=== PATIENT | male | born 1990 | race Caucasian/White ===

== ENCOUNTER 2022-11-07 16:22 | Outpatient (CLI) | payer OTHER, SELFPAY ==
[2022-11-07 16:59] LABS: Basophils Absolute Auto 0.1 K/mm3 (0.0-0.1); Basophils Percent Auto 0.7 % (0.2-1.2); Eosinophils Absolute Auto 0.3 K/mm3 (0-0.3); Eosinophils Percent Auto 2.5 % (0-4.4); Hematocrit 43.9 % (42.0-52.0); Hemoglobin 14.5 g/dL (14.0-18.0); Immature Granulocyte Absolute 0.04 K/mm3 (0.00-0.031); Immature Granulocyte Percent A 0.4 % (0-0.5); Lymphocytes Absolute Auto 2.25 K/mm3 (0.9-3.2); Lymphocytes Percent Auto 20.9 % (18.3-44.2); Mean Corpuscular Hemoglobin 28.9 pg (26-34); Mean Corpuscular Volume 87.6 fl (80-100); Mean Platelet Volume 11.6 fl (7.4-10.4); Monocytes Absolute Auto 0.8 K/mm3 (0.1-0.6); Monocytes Percent Auto 7.5 % (2.6-8.5); Neutrophils Absolute Auto 7.3 K/mm3 (1.3-6.7); Platelet Count Result 253 k/mm3 (150-375); Red Blood Count 5.01 M/mm3 (4.6-6.20); Red Cell Distribution Width 13.1 % (11.5-14.5); White Blood Count 10.8 K/mm3 (4.5-10.0)
[2022-11-07 17:02] LABS: Appearance Urine Clear (Clear); Bilirubin Urine Negative (Negative); Blood Urine Negative (Negative); Color Urine Yellow (Yellow); Glucose Urine UA Negative (Negative); Ketones Urine Negative (Negative); Leukocyte Esterase Ur Negative LEU/UL (Negative); Nitrate Urine Negative (Negative); Protein Urine Negative (Negative); Specific Grav Ur 1.025 (1.001-1.035); Urobilinogen Urine 0.2 mg/dL (<2.0)
[2022-11-07 17:06] LABS: Add Urine Microscopic? NO
[2022-11-07 17:07] LABS: Anion Gap 7 mmol/L (8-16); Blood Urea Nitrogen 20 mg/dL (9-20); Calcium 9.3 mg/dL (8.4-10.2); Carbon Dioxide 29 mmol/L (22-30); Chloride 100 mmol/L (98-107); Estimated Glomerular Filt Rate > 60; Glucose 112 mg/dL (65-110); Potassium 3.3 mmol/L (3.4-5.0); Sodium 136 mmol/L (137-145)
== END 2022-11-07 16:23 | disposition home or self-care (01) ==
LOC: ANHLAB 16:23
PROVIDERS: Visit Provider Neurological Surgery
DX: Z01.818 Encounter for other preprocedural examination (principal)
CPT/HCPCS: 36415; 80048; 81003; 85025

== ENCOUNTER 2022-11-09 14:54 | Inpatient (IN) | payer OTHER, SELFPAY ==
[2022-10-26 10:50] VITALS: BMI 52.4
--- NOTE | 2022-10-26 10:55 | PC.NURSE ---
Report to the Outpatient Waiting Room, entrance under the green pavilion located off [facility], at time 0930 on date 11/08/22. Planned Procedure Time: 1130. Time changes happen often and if your time is changed the preop area will call you the afternoon before. - You and your visitor will be asked to self-screen and do not enter if you have any COVID symptoms. - Only one visitor is requested with a max of two and NO children visitors are allowed at this time. - The patient visitor may be requested to leave or wait in car when not with patient due to distancing restrictions. - A mask is REQUIRED within the hospital. Patients may have clear liquids (water, carbonated beverages, clear teas, apple juice) until 3 hours prior to surgery with a maximum of 20 ounces. - No food from midnight until time of surgery Take the following medications with a SIP of water the morning of surgery: BUPROPION Medications to discontinue per physician: VITAMINS/SUPPLEMENTS Date to take last dose: 11/04/22 Please no make-up, nail turkish, hairspray, perfume, deodorant, or body powder the day of surgery. No jewelry (including any body piercings) or valuables the day of surgery, leave them at home. Please take a shower or bath the night before, or the morning of, surgery with an antibacterial soap. Wear comfortable, loose fitting clothing. - Jewelry must be removed prior to entering the operating room. Rings and piercings that are not removed may be cut off. - The hospital will not accept responsibility for valuables. - Please leave all valuables, including medications, at home the day of surgery. If you are going home after surgery, a licensed driver examiner must drive you home. - NO public transportation without another adult if you receive anesthesia. - We recommend that an adult stay with you for 24 hours following discharge. - We also recommend that you do not drive, make important decision, drink alcoholic beverages, or take any drugs that were not prescribed by your health care provider for at least 24 hours after your discharge time. Follow any additional instructions given to you from your surgeon. If you or anyone in your household have experienced Covid symptoms in the past week, please notify your surgeon or the nurse liaison at the phone number below for possible testing. Telephone instructions given to PT - SHELBIE MOORE and asked if any additional questions and then verbalized understanding. Patient advised to call surgeon office or pre surgery nurse liaison [phone] if any additional questions.
--- NOTE | 2022-11-07 09:52 | PCCCNOTE ---
Addendum entered by Digna Multani RN 11/07/22 10:32: Return phone received from Hamida states that submitted for Inpatient auth and patient is authorized as IP [id number] Addendum entered by Digna Multani RN 11/07/22 09:56: Correction: unsure if it is auth'd for outpatient or inpatient. Original Note: Per precert notes, preauth is needed for surgery. Called to MD's office sw [facility], she states that she has authorization but unsure if it is auth'd for [id number]. Hamida to fax to care coordination for review.
[2022-11-08] VITALS (16 sets, daily range): BP systolic 98–160; BP diastolic 76–109; PULSE 81–96; RESP 10–22; TEMP 36.1–36.7; O2SAT 96–100; BMI 51.5
[2022-11-08] MEDS: LACTATED RINGERS 1,000 ML 30 ML IV CONT ×2 (11:14→17:23)
[2022-11-08 11:32] LABS: INR 1.1; Partial Thromboplastin Time 29.1 SECONDS (22.3-36.8)
--- NOTE | 2022-11-08 12:53 | WPDANESEPPF ---
Anes - Initial Pre Proc Eval Procedure: Operation Date: 11/08/22 11:30 Proposed Procedures p T10-L2 Lumbar Laminectomy and Discectomy, Right L5-S1 Microscopic Discectomy - Naren Antonio MD Date/Time: 11/08/22 12:53 Surgeon: Naren Antonio MD Pre Op Diagnosis: T10-L2 stenosis, Right L5-S1 herniated nucleus pul Patient Data Age: 31 Gender: M Height: 1.77 m Weight: 160.5 kg Last Vital Signs Temp 36.7 C 11/08/22 10:47 Pulse 92 11/08/22 10:47 Resp 20 11/08/22 10:47 BP 144/76 H 11/08/22 10:47 Pulse Ox 96 11/08/22 10:47 O2 Del Method Room Air 11/08/22 10:47 Allergies Allergy/AdvReac Type Severity Reaction Status Date / Time No Known Allergies Allergy Verified 11/08/22 11:24 Home Medications Medication Instructions Recorded Confirmed Type bupropion HCl 300 mg 24 hr tablet, 300 mg PO DAILY 10/26/22 11/08/22 History extended release zinc gluconate 100 mg tablet 100 mg PO DAILY 10/26/22 11/08/22 History Laboratory Tests 11/08/22 11/08/22 11/08/22 11:06 11:06 11:06 PT Cancelled 14.0 Seconds Seconds (11.1-14.7) INR Cancelled 1.1 APTT 29.1 SECONDS SECONDS (22.3-36.8) Blood Type A Positive Antibody Screen Negative Patient hx anesthesia problems: none Family hx anesthesia problems: none Results Review: All pre-operative results and documents have been reviewed as part of the pre-operative evaluation. FOR[facility]LY [facility] Past Medical History Medical History (Updated 11/08/22 @ 12:53 by Nimesh Dubois MD) Anxiety Back pain Morbid obesity Surgical History Surgical History (Updated 11/08/22 @ 12:54 by Nimesh Dubois MD) History of excision of pilonidal cyst Family History Family History Other Diabetes mellitus Heart disease Hypertension Social History Social History Smoking status: Never smoker Alcohol intake: current Alcohol use details: 1-2/YEAR Substance use: never Substance use type: does not use Spiritual care concerns: No Anes - Eval Final PreProcedure Day of Procedure 11/08/22 12:53 Patient weight: morbidly obese Heart: regular rate and rhythm Lungs: clear to auscultation Airway: Mallampati scale class II Neurological: alert and oriented Last oral intake: >/= 8 hours ASA classification: III Emergent: no Anesthetic plan: proceed Anesthesia type and monitoring: general ETT and standard monitoring Results Review: All pre-operative results and documents have been reviewed as part of the pre-operative evaluation. Informed Consent: The patient's anesthetic plan and its attendant risks and benefits were discussed with the patient/family/POA. Questions were solicited and answers provided to the satisfaction of the patient/family/POA.
--- NOTE | 2022-11-08 13:12 | WPDHPUPDATE1 ---
History and Physical Update Update Date/Time: 11/08/22 13:12 History and Physical has been reviewed, including an updated exam of the patient. There are NO changes in the patient's condition. Risks, benefits, and alternatives have been discussed and questions answered. Patient agrees to proceed with procedure.
--- NOTE | 2022-11-08 13:12 | PM.IMHP ---
H&P: HPI History of Present Illness Date/Time: 11/08/22 13:12 Chief Complaint: Back and leg pain, myelopathy Narrative: Mr. Sandoval is a 31-year-old gentleman with spinal cord compression causing myelopathy and back and leg pain presents for T10-L2 laminectomy and microdiskectomy and left-sided L5-S1 microdiskectomy to remove calcified disc herniations and decompress the spinal canal and nerve roots. He has not changed appreciably since we saw him last. He is not having any new bowel or bladder issues. He does have weakness and difficulty walking. Review of Systems Review of Systems: Const All systems reviewed & are unremarkable except as noted in HPI and below Denies chills, Denies fever(s), Reports weakness, Denies weight gain and Denies weight loss Eyes Denies change in vision and Denies loss of vision ENT Denies disequilibrium Card Denies chest pain and Denies dyspnea Resp Denies cough and Denies dyspnea GI Denies abdominal pain, Denies change in bowel habits, Denies tenesmus, Denies change in stool character, Denies fecal incontinence and Denies vomiting Denies hematuria, Denies oliguria, Denies difficulty urinating, Denies dysuria, Denies urinary frequency, Denies urinary hesitancy, Denies urinary incontinence and Denies urinary urgency Musc Reports as per HPI, Reports abnormal gait, Reports back pain, Reports muscle weakness, Reports numbness and Reports radiating pain into limb Skin/ Breast Reports system reviewed and no additional complaints, except as documented Neuro Reports as per HPI, Reports abnormal gait, Denies loss of vision, Reports numbness, Reports radicular pain, Denies disequilibrium and Reports weakness Psych Reports no additional complaints, Denies depression and Denies hopelessness Endo Reports no additional complaints and Denies polyuria Ajay/ Lymph Reports no additional complaints Aller/ Immun Reports no additional complaints PMFSH Past Medical History Medical History (Updated 11/08/22 @ 12:53 by Nimesh Dubois MD) Anxiety Back pain Morbid obesity Surgical History Surgical History (Updated 11/08/22 @ 12:54 by Nimesh Dubois MD) History of excision of pilonidal cyst Family History Family History Other Diabetes mellitus Heart disease Hypertension Social History Social History Smoking status: Never smoker Alcohol intake: current Alcohol use details: 1-2/YEAR Substance use: never Substance use type: does not use Spiritual care concerns: No Meds Home Medications and Allergies Home Medications Medication Instructions Recorded Confirmed Type bupropion HCl 300 mg 24 hr tablet, 300 mg PO DAILY 10/26/22 11/08/22 History extended release zinc gluconate 100 mg tablet 100 mg PO DAILY 10/26/22 11/08/22 History Allergies Allergy/AdvReac Type Severity Reaction Status Date / Time No Known Allergies Allergy Verified 11/08/22 11:24 Vital Signs Vital Signs - 24 hr 11/08/22 10:47 Temperature 98.1 F Pulse Rate 92 Respiratory Rate 20 Blood Pressure 144/76 H Pulse Oximetry 96 Oxygen Delivery Room Air Exam Narrative: Examination of the back reveals no tenderness. Range of motion of the back could not be tested due to habitus and instability. Straight leg is negative bilaterally. Karan?s test is negative bilaterally. General: Yes oriented to person, Yes oriented to place, Yes oriented to time, Yes normal cognition and Yes no meningeal signs Cranial Nerves: Yes CN's II-XII intact bilaterally Speech: normal speech Other: Motor: Strength is 4/5 in all muscle groups of the left lower extremity. Strength is normal in the right lower extremity and in the bilateral upper extremities. No dysmetria. No dyspraxia. No pronator drift. Sensory: Patient has subjective left lower extremity numbness but sensation appears to be intact to light touch thr
[2022-11-08] MEDS: ceFAZolin 3 GM/D5W 100 ML 100 ML IVPB (13:29)
[2022-11-08] MEDS: TRANEXAMIC ACID 1,000 MG/10 ML AMPUL 1000 MG IV PUSH (14:29)
[2022-11-08] MEDS: fentaNYL CITRATE INJ (*CRX) 100 MCG/2 ML VIAL 25 MCG IV PUSH ×8 (17:40→18:12)
[2022-11-08] MEDS: HYDROmorphone HCL INJ (*CRX) 1 MG/ML SYR 0.5 MG IV PUSH ×3 (18:24→18:36)
--- NOTE | 2022-11-08 19:25 | ADMGEN ---
This patient, Omi Sandoval II, was admitted to Virtual Bed 7-3 Surgery-3. Patient/family oriented to hospital policies and general routines including ID bracelet, bed and alarms, visiting hours, pain management, procedures, bathroom and other care routines, personal items, smoking policy, room service/diet, and visiting hours. Information on how to activate the Rapid Response Team has been discussed. Patient/Family are encouraged to report perceived risks to care and to ask questions if they do not understand what they are told or what they should do.
[2022-11-08] MEDS: DOCUSATE SODIUM 100 MG CAPSULE PO (20:42)
[2022-11-08] MEDS: HYDROcodone/acetaminophen (*CRX) 10-325 MG TABLET 1 TAB PO (20:42)
[2022-11-09] VITALS (10 sets, daily range): BP systolic 114–147; BP diastolic 52–69; PULSE 91–100; RESP 12–20; TEMP 36.2–37.1; O2SAT 96–100
--- NOTE | ~2022-11-09 | XR_ITS ---
XR fluoroscopy no charge Pain management procedure TECHNIQUE: Fluoroscopy used during spine procedure performed by [Naren Antonio MD] on 2022. 3 seconds of fluoroscopy. with a single image captured. ] FINDINGS: Correlate with procedure note. Single lateral view of the lumbar spine demonstrates surgic al instrument overlying the spinous process at L3. IMPRESSION: Fluoroscopy used during spine procedure. Please correlate with procedural note. Reviewed, dictated and finalized at location A. AL INSURANCE COORDINATOR IMPRESSION: Fluoroscopy used during spine procedure. Please correlate with proc edural note.
--- NOTE | ~2022-11-09 | US_ITS ---
EXAMINATION: US venous doppler [facility] DATE: 11/10/2022 14:38 INDICATION: Right lower limb pain and weak pulses. TECHNIQUE: Grayscale ultrasound images without and with compression and Doppler ultrasound images of the bilateral lower extremity veins were obtained. COMPARISON: None. FINDINGS: The visualized portions of right common femoral vein, profunda (deep) femoral vein, femoral vein, pop liteal vein, posterior tibial veins, peroneal veins, gastrocnemius vein and greater saphenous vein ou tflow are patent. The visualized portions of left common femoral vein, profunda femoral vein, femoral vein, popliteal v ein, posterior tibial veins, peroneal veins, gastrocnemius vein and greater saphenous vein outflow ar e patent. IMPRESSION: 1. No deep venous thrombosis in either lower limb. Reviewed, dictated and finalized at location A. OON SANDER
[2022-11-09] MEDS: HYDROcodone/acetaminophen (*CRX) 10-325 MG TABLET 1 TAB PO ×3 (00:43→08:58)
--- NOTE | 2022-11-09 08:19 | PCOTNOTE ---
Attempted to see patient for OT evaluation this AM. Patient reporting too much pain to attempt to get up at this time. RN notified. Will try to coordinate therapy with pain medication later this morning.
--- NOTE | 2022-11-09 08:23 | PCPTNOTE ---
Attempted PT evaluation. Pt refused due to pain. Pt complaining of R UE and LE of numbness/tingling - RN aware of pt's situation. Will follow.
[2022-11-09] MEDS: DOCUSATE SODIUM 100 MG CAPSULE PO ×2 (08:26→19:59)
[2022-11-09] MEDS: buPROPion HCL XL (24 HR) 150 MG TABCR 300 MG PO (08:26)
--- NOTE | 2022-11-09 11:03 | WPDANESPN ---
Anes - Prog Note Post-Op Date/Time: 11/09/22 11:03 Cardiovascular status: normal Respiratory status: normal Airway patency: baseline Mental status: baseline Post-Op hydration status: normal Vital Signs: Last Vital Signs Temp 36.2 C L 11/09/22 09:00 Pulse 93 11/09/22 09:00 Resp 18 11/09/22 09:00 BP 129/53 L 11/09/22 09:00 Pulse Ox 98 11/09/22 09:00 O2 Del Method Room Air 11/09/22 08:41 O2 Flow Rate 1 11/09/22 04:00 Pain Score (VAS): 0 I/O: Intake & Output 11/08/22 11/09/22 11/09/22 23:59 07:59 15:59 Intake Total 5868 224 2438 Output Total 1905 Balance 1300 -1075 1240 11/08/22 11/08/22 11/08/22 11:06 11:06 11:06 PT Cancelled 14.0 INR Cancelled 1.1 APTT 29.1 Blood Type A Positive Antibody Screen Negative Post-procedural complaints: none Patient Feedback: Patient satisfied with anesthetic care.
[2022-11-09] MEDS: DEXAMETHASONE 4 MG TABLET PO ×3 (13:21→23:43)
[2022-11-09] MEDS: oxyCODONE/ACETAMINOPHEN (*CRX) 5-325 MG TABLET 1 TABLET PO ×3 (13:30→23:43)
--- NOTE | 2022-11-09 13:59 | WPDNEUROSGPN ---
Progress Note: A&P Assessment and Plan (1) Thoracic disc herniation: Code(s): M51.24 - Other intervertebral disc displacement, thoracic region Status: Acute (2) Lumbar disc herniation: Code(s): M51.26 - Other intervertebral disc displacement, lumbar region Status: Acute Plan Pt reports increased pain to RLE, where as LLE is without pain or lack of strength. Dexamethasone started today, first dose given now. Hydrocodone changed to Oxycodone for pain control. Hemovac drain remains in place Monitor dressing for drainage. Time Spent With Patient Time with patient: less than 15 minutes Subjective Date/time seen: 11/09/22 13:59 Interval history: Post op day 1,s/p T10-L2 Laminectomy with Left L5-S1 Discectomy. Pt reports no Left leg pain but does report pain to right lower extremity. Review of Systems Review of Systems: All systems reviewed & are unremarkable except as noted in HPI and below Exam Narrative: General: AO X 3 Speech: normal speech Other: Back incision with intact with outlined drainage noted Motor: Strength is 4/5 in all muscle groups of the right lower extremity (due to pain). Strength is normal in the left lower extremity and in the bilateral upper extremities. No dysmetria. No dyspraxia. No pronator drift. Sensory: Patient has subjective right lower extremity numbness but sensation appears to be intact to light touch throughout the bilateral lower extremities.? Objective Data Vital Signs Vital Signs: Vital Signs - 24 hr 11/08/22 17:23 11/08/22 17:30 11/08/22 17:45 Temperature 36.1 C L Pulse Rate 86 89 91 Respiratory Rate 10 L 10 L 12 Blood Pressure 142/81 H 142/86 H 134/98 H Pulse Oximetry 98 99 99 Oxygen Delivery Simple Face Mask Simple Face Mask Simple Face Mask Oxygen Flow Rate 8 8 8 11/08/22 18:00 11/08/22 18:06 11/08/22 18:15 Temperature Pulse Rate 96 96 Respiratory Rate 14 18 Blood Pressure 111/92 H 119/91 H Pulse Oximetry 100 98 100 Oxygen Delivery Simple Face Mask Room Air Nasal Cannula Oxygen Flow Rate 8 2 11/08/22 18:30 11/08/22 18:45 11/08/22 19:00 Temperature Pulse Rate 92 87 85 Respiratory Rate 18 16 14 Blood Pressure 129/79 131/97 H 139/79 Pulse Oximetry 99 97 96 Oxygen Delivery Nasal Cannula Nasal Cannula Nasal Cannula Oxygen Flow Rate 2 2 2 11/08/22 19:15 11/08/22 19:30 11/08/22 19:45 Temperature 36.3 C L 36.3 C L Pulse Rate 81 86 95 Respiratory Rate 12 22 H 20 Blood Pressure 155/95 H 152/99 H 160/109 H Pulse Oximetry 97 98 100 Oxygen Delivery Nasal Cannula Oxygen Flow Rate 2 11/08/22 20:00 11/08/22 20:30 11/08/22 20:00 Temperature 36.3 C L 36.3 C L Pulse Rate 90 96 Respiratory Rate 20 20 20 Blood Pressure 148/82 H 98/84 L Pulse Oximetry 96 100 100 Oxygen Delivery Nasal Cannula Oxygen Flow Rate 4 11/08/22 22:00 11/09/22 00:30 11/09/22 00:00 Temperature 36.5 C Pulse Rate 97 Respiratory Rate 18 Blood Pressure 121/62 Pulse Oximetry 98 96 96 Oxygen Delivery Nasal Cannula Nasal Cannula Oxygen Flow Rate 3 2 11/09/22 04:30 11/09/22 04:00 11/09/22 06:21 Temperature 36.4 C Pulse Rate 91 Respiratory Rate 20 Blood Pressure 128/62 Pulse Oximetry 97 98 100 Oxygen Delivery Nasal Cannula Room Air Oxygen Flow Rate 1 11/09/22 08:41 11/09/22 09:00 11/09/22 10:26 Temperature 36.2 C L Pulse Rate 93 Respiratory Rate 18 Blood Pressure 129/53 L Pulse Oximetry 98 Oxygen Delivery Room Air Room Air Oxygen Flow Rate Intake/Output Intake/Output: Intake & Output 11/06/22 11/07/22 11/08/22 11/09/22 23:59 23:59 23:59 23:59 Intake Total 1400 2570 Output Total 2305 Balance 1400 265 Meds/Results Medications: Active Medications Generic Name Dose Route Start Last Admin Trade Name Freq PRN Reason Stop Dose Admin Hydrocodone Bitart/Acetaminophen 1 tab 11/08/22 19:24 Hydrocodone/Acetaminophen (*Crx) 5-325 Mg Tablet PO Q4H PRN Mil
--- NOTE | 2022-11-09 15:58 | PC.NURSE ---
This patient, Omi Sandoval II, was transferred to [facility] on 11/09/22 at 1558. Personal belongings sent with patient. Report given to Anni ANDERSON. Appropriate documentation sent with patient.
--- NOTE | 2022-11-09 17:49 | ADMGEN ---
This patient, Omi Sandoval II, was admitted to 2 Medical Room 257-01. Patient/family oriented to hospital policies and general routines including ID bracelet, bed and alarms, visiting hours, pain management, procedures, bathroom and other care routines, personal items, smoking policy, room service/diet, and visiting hours. Information on how to activate the Rapid Response Team has been discussed. Patient/Family are encouraged to report perceived risks to care and to ask questions if they do not understand what they are told or what they should do.
[2022-11-09] MEDS: CYCLOBENZAPRINE HCL 10 MG TABLET PO ×2 (18:15→23:43)
[2022-11-09] MEDS: MORPHINE SULFATE (*CRX) 2 MG/ML INJ IV PUSH (20:02)
[2022-11-09] MEDS: oxyCODONE HCL (*CRX) 5 MG TAB IR PO (23:44)
[2022-11-10] VITALS: BP 132/58; PULSE 97; RESP 14; TEMP 36.6; O2SAT 96
[2022-11-10 04:00] VITALS: BP 138/83; PULSE 93; RESP 14; TEMP 36.6; O2SAT 97
[2022-11-10] MEDS: DEXAMETHASONE 4 MG TABLET PO ×3 (05:57→17:47)
[2022-11-10] MEDS: CYCLOBENZAPRINE HCL 10 MG TABLET PO ×2 (05:57→17:49)
[2022-11-10] MEDS: oxyCODONE/ACETAMINOPHEN (*CRX) 5-325 MG TABLET 1 TABLET PO ×3 (05:59→17:46)
[2022-11-10] MEDS: oxyCODONE HCL (*CRX) 5 MG TAB IR PO ×3 (05:59→17:46)
[2022-11-10] MEDS: DOCUSATE SODIUM 100 MG CAPSULE PO ×2 (08:42→20:22)
[2022-11-10] MEDS: buPROPion HCL XL (24 HR) 150 MG TABCR 300 MG PO (09:03)
[2022-11-10 10:00] VITALS: BP 147/58; PULSE 84; RESP 18; TEMP 36.7; O2SAT 97
--- NOTE | 2022-11-10 11:22 | WPDNEUROSGPN ---
Progress Note: A&P Assessment and Plan (1) Lumbar disc herniation: Code(s): M51.26 - Other intervertebral disc displacement, lumbar region Status: Acute Assessment and Plan: Mr. Omi Sandoval is a 31 y/o M POD # 2 s/p s/p T10-L2 Laminectomy with Left L5-S1 Discectomy with Dr. Antonio - Continue Decadron 4 q 6 - PT/OT - Encourage UP to chair if possible - Ambulate if possible - Void - Passing gas, no BM. Miralax - D/c HV - b/l LE Duplex to r/o DVT - Will continue steroids to see if pain improves - If pain continues, will most likely get MRI tomorrow AM Subjective Date/time seen: 11/10/22 11:22 Patient continues to have right posterior buttock and calf pain in the right leg. His preop left leg pain is gone. Decadron started yesterday with some relief, but still having a lot of difficulty with getting out of bed. + void. Per and patient, his left foot weakness has resolved. HV: 50 Exam Neuro: Other: Alert and oriented x 3 Motor: - Right DF/EHL 4+/5, otherwise full strength + Calf tenderness to palpation on right Objective Data Vital Signs Vital Signs: Vital Signs - 24 hr 11/09/22 14:41 11/09/22 18:27 11/09/22 18:38 Temperature 36.9 C 36.9 C Pulse Rate 100 100 Respiratory Rate 12 12 Blood Pressure 147/69 H 147/69 H Pulse Oximetry 96 96 Oxygen Delivery Room Air Room Air 11/09/22 18:00 11/09/22 20:00 11/09/22 21:00 Temperature 37.1 C 36.8 C Pulse Rate 95 94 Respiratory Rate 16 14 Blood Pressure 139/57 L 114/52 L Pulse Oximetry 98 96 Oxygen Delivery Room Air 11/10/22 00:00 11/10/22 04:00 11/10/22 10:00 Temperature 36.6 C 36.6 C 36.7 C Pulse Rate 97 93 84 Respiratory Rate 14 14 18 Blood Pressure 132/58 L 138/83 147/58 H Pulse Oximetry 96 97 97 Oxygen Delivery Intake/Output Intake/Output: Intake & Output 11/07/22 11/08/22 11/09/22 11/10/22 23:59 23:59 23:59 23:59 Intake Total 1400 3190 700 Output Total 4361 9390 Balance 1400 735 -888 Meds/Results Medications: Active Medications Generic Name Dose Route Start Last Admin Trade Name Freq PRN Reason Stop Dose Admin Hydrocodone Bitart/Acetaminophen 1 tab 11/08/22 19:24 Hydrocodone/Acetaminophen (*Crx) 5-325 Mg Tablet PO Q4H PRN Mild Pain (1-3) Hydrocodone Bitart/Acetaminophen 1 tab 11/08/22 19:24 11/09/22 08:58 Hydrocodone/Acetaminophen (*Crx) 10-325 Mg Tablet PO 1 tab Q4H PRN Administration Moderate Pain (4-6) Al Hydrox/Mg Hydrox/Simethicone 20 ml 11/08/22 19:24 Mag Hydrox/Al Hydrox/Simeth 30 Ml Udc PO Q4H PRN Indigestion/Heartburn Bisacodyl 10 mg 11/08/22 19:24 Bisacodyl 10 Mg Suppository RECTAL DAILY PRN Constipation Bupropion HCl 300 mg 11/09/22 09:00 11/10/22 09:03 Bupropion Hcl Xl (24 Hr) 150 Mg Tabcr PO 300 mg DAILY ANAMARIA Administration Cyclobenzaprine HCl 10 mg 11/09/22 18:00 11/10/22 05:57 Cyclobenzaprine Hcl 10 Mg Tablet PO 10 mg Q6HR PRN Administration Muscle Spasm Dexamethasone 4 mg 11/09/22 12:35 11/10/22 05:57 Dexamethasone 4 Mg Tablet PO 4 mg Q6HR ANAMARIA Administration Docusate Sodium 100 mg 11/08/22 21:00 11/10/22 08:42 Docusate Sodium 100 Mg Capsule PO 100 mg Q12HR ANAMARIA Administration Cefazolin Sodium 1 gm in 50 mls @ 100 mls/hr 11/08/22 20:00 11/10/22 04:09 Ancef 1 Gm/D5w 50 Ml Pm IVPB Infused Q8H ANAMARIA Infusion Morphine Sulfate 2 mg 11/08/22 19:24 11/09/22 20:02 Morphine Sulfate (*Crx) 2 Mg/Ml Inj IV PUSH 2 mg Q2H PRN Administration Breakthrough Pain Ondansetron HCl 4 mg 11/08/22 19:24 Ondansetron Inj 4 Mg/2 Ml Vial IV PUSH Q8H PRN Nausea And Vomiting Oxycodone HCl 5 mg 11/09/22 13:23 11/10/22 05:59 Oxycodone Hcl (*Crx) 5 Mg Tab Ir PO 5 mg Q4H PRN Administration Pain Rated 7-10 Oxycodone/Acetaminophen 1 tablet 11/09/22 12:35 Oxycodone/Acetaminophen (*Crx) 5-325 Mg Tablet PO
--- NOTE | 2022-11-10 12:50 | PCOTNOTE ---
Due to safety concerns, therapy services are not appropriate until pt has been evaluated for DVT. Will attempt when appropriate.
[2022-11-10 14:00] VITALS: BP 147/64; PULSE 92; RESP 14; TEMP 36.6; O2SAT 97
[2022-11-10] MEDS: MORPHINE SULFATE (*CRX) 2 MG/ML INJ IV PUSH (14:55)
--- NOTE | 2022-11-10 16:16 | PM.IMCN ---
Assessment and Plan Assessment and plan (1) Thoracic disc herniation: Code(s): M51.24 - Other intervertebral disc displacement, thoracic region Status: Acute Assessment and Plan: - continue with analgesics as per Neurosurgery - the patient has PT and OT ordered however the patient has limited his activities due to pain. - The patient is able to move his left leg without difficulty now. However the patient is complaining of the electric shocks down his right leg. This could possibly sciatica. Or inflammation from a nerve. The patient is currently on dexamethasone. -Could possibly consider gabapentin for neuropathy pain. -Continue with cyclobenzaprine venous Dopplers negative for DVT per preliminary report (2) Anxiety: Code(s): F41.9 - Anxiety disorder, unspecified Status: Acute Assessment and Plan: -continue with Wellbutrin HPI Data of Consult Consult date: 11/10/22 Requesting Physician: Naren Antonio MD Primary Care Provider: PHYSICIAN NOT ON STAFF Consult Narrative Narrative: Omi Sandoval II is a 31 year old male Who has had an injury to his back in the past. The patient was found have spinal cord compression causing myelopathy and leg pain. The patient states that he was having difficulty lifting up his left leg. The patient underwent a T10-L2 laminectomy with left L5-S1 diskectomy. On 11/08/[address] Antonio. Please see operative note. The patient had a venous Doppler performed which shows no DVT to the right leg. The patient is complaining of numbness and tingling to his right lower extremity. The patient stated it feels as if he has pins and needles going into his leg. The patient was started on dexamethasone and his hydrocodone was replaced with oxycodone. Patient has been having limited PT and OT due to the discomfort. Patient was admitted to neuro surgery observation and the hospitalist group was asked to consult on 11/10/2022. Review of Systems Review of Systems: See HPI All systems reviewed & are unremarkable except as noted in HPI and below Constitutional: Constitutional: Reports as per HPI and Reports no additional constitutional complaints Eyes: Eyes: Reports as per HPI and Reports no additional eye complaints ENT: Reports system reviewed and no additional complaints, except as documented and Reports Normal hearing present Cardiovascular: Cardiovascular: Reports no additional cardiovascular complaints Respiratory: Respiratory: Reports no additional respiratory complaints and Reports no additional respiratory complaints Gastrointestinal: Gastrointestinal: Reports as per HPI and Reports no additional gastrointestinal complaints Musculoskeletal: Musculoskeletal: Reports no additional musculoskeletal complaints Integumentary/Breasts: Skin/Breast: Reports system reviewed and no additional complaints, except as docu and Reports as per HPI Neurologic: Reports system reviewed and no additional complaints, except as documented, Reports as per HPI and Reports Normal hearing present Psychiatric: Psychiatric: Reports no additional psychiatric complaints and Reports as per HPI Endocrine: Endocrine: Reports no additional endocrine complaints Hematologic/Lymphatic: Hematologic/Lymphatic: Reports no additional hematologic/lymphatic complaints Allergic/Immunologic: Allergic/Immunologic: Reports no additional allergic/immunologic complaints [facility] Past Medical History Medical History (Updated 11/10/22 @ 16:34 by Tasneem Salinas NP) Anxiety Back pain Morbid obesity Surgical History Surgical History History of excision of pilonidal cyst Family History Family History Other Diabetes mellitus Heart disease Hypertension Social History Social History (Updated 11/10/22 @ 16:31 by Tasneem Salinas NP) Social History
[2022-11-10 18:00] VITALS: BP 123/59; PULSE 93; RESP 16; TEMP 36.4; O2SAT 97
[2022-11-10 22:16] VITALS: BP 111/54; PULSE 99; RESP 18; TEMP 36.2; O2SAT 96
[2022-11-11] MEDS: DEXAMETHASONE 4 MG TABLET PO ×4 (00:24→17:18)
[2022-11-11] MEDS: oxyCODONE HCL (*CRX) 5 MG TAB IR PO ×4 (00:38→19:00)
[2022-11-11] MEDS: oxyCODONE/ACETAMINOPHEN (*CRX) 5-325 MG TABLET 1 TABLET PO ×4 (00:39→18:59)
[2022-11-11] MEDS: CYCLOBENZAPRINE HCL 10 MG TABLET PO ×2 (05:18→11:14)
[2022-11-11 05:36] LABS: Basophils Percent Auto 0.1 % (0.2-1.2); Hematocrit 39.9 % (42.0-52.0); Hemoglobin 12.7 g/dL (14.0-18.0); Immature Granulocyte Absolute 0.09 K/mm3 (0.00-0.031); Immature Granulocyte Percent A 0.6 % (0-0.5); Lymphocytes Absolute Auto 1.01 K/mm3 (0.9-3.2); Lymphocytes Percent Auto 7.1 % (18.3-44.2); Mean Corpuscular HGB Conc 31.8 g/dl (32-36); Mean Corpuscular Hemoglobin 28.4 pg (26-34); Mean Corpuscular Volume 89.3 fl (80-100); Mean Platelet Volume 12.2 fl (7.4-10.4); Monocytes Absolute Auto 0.5 K/mm3 (0.1-0.6); Monocytes Percent Auto 3.7 % (2.6-8.5); Neutrophils Absolute Auto 12.6 K/mm3 (1.3-6.7); Neutrophils Percent Auto 88.5 % (45.5-73.1); Platelet Count Result 226 k/mm3 (150-375); Red Blood Count 4.47 M/mm3 (4.6-6.20); White Blood Count 14.2 K/mm3 (4.5-10.0)
[2022-11-11 05:48] LABS: Alanine Aminotransferase 27 U/L (6-50); Albumin Level 4.1 g/dL (3.5-5.1); Alkaline Phosphatase 58 U/L (38-126); Anion Gap 7 mmol/L (8-16); Aspartate Amino Transferase 16 U/L (17-59); Bilirubin,Total 0.3 mg/dL (0.2-1.3); Blood Urea Nitrogen 14 mg/dL (9-20); Calcium 8.3 mg/dL (8.4-10.2); Carbon Dioxide 27 mmol/L (22-30); Chloride 103 mmol/L (98-107); Estimated CRCL calculation 271 ml/min; Estimated Glomerular Filt Rate > 60; Glucose 184 mg/dL (65-110); Magnesium 2.3 mg/dL (1.6-2.3); Potassium 4.2 mmol/L (3.4-5.0); Sodium 137 mmol/L (137-145)
[2022-11-11 06:00] VITALS: BP 106/67; PULSE 68; RESP 18; TEMP 36.2; O2SAT 96
[2022-11-11 06:29] LABS: Thyroid Stimulating Hormone Reflex 0.114 uIU/mL (0.465-4.68)
[2022-11-11 06:57] LABS: Folic Acid 5.2 ng/mL (2.76->20)
[2022-11-11] MEDS: DOCUSATE SODIUM 100 MG CAPSULE PO ×2 (08:47→21:21)
[2022-11-11] MEDS: buPROPion HCL XL (24 HR) 150 MG TABCR 300 MG PO (08:47)
[2022-11-11 09:30] LABS: Total Triiodothyronine (T3) 0.75 NG/ML (0.97-1.69)
[2022-11-11 10:10] VITALS: BP 140/67; PULSE 97; RESP 16; TEMP 35.9; O2SAT 99
--- NOTE | 2022-11-11 10:45 | PM.IMPN ---
Progress Note: A&P Assessment and Plan (1) Thoracic disc herniation: Code(s): M51.24 - Other intervertebral disc displacement, thoracic region Status: Acute Assessment and Plan: POD 3 Post op care per neurosurgery Pain medications per neurosurgery PT/OT consulted Activity limited due to pain in the right leg Consider adding gabapentin Consider MRI if pain continues or worsens DVT per neurosurgery (2) Depression: Code(s): F32.A - Depression, unspecified Status: Acute Assessment and Plan: Mood seems to be stable Continue with Wellbutrin for now (3) Elevated blood pressure reading: Code(s): R03.0 - Elevated blood-pressure reading, without diagnosis of hypertension Status: Acute Assessment and Plan: BP has been elevated 11-147/52-69 Not on any home medications Probably related to pain Continue to trend Add therapy as indicated Time Spent With Patient Time with patient: Greater than 35 minutes Subjective Date/time seen: 11/11/22 1045 Interval history: 11/11/22 1045 Patient is sitting in the chair. He stated that he was feeling better. He stated that the pain is better than it has been over the last few day. I bet it has something to do with weight shifting. Otherwise still no BM. He is doing well getting around. He denies any chest pain, shortness of breath, nausea, vomiting, diarrhea, constipation, weakness, or fatigue. 11/10/22 1616 Omi Sandoval II is a 31 year old male ? Who has had an injury to his back in the past.? The patient was found have spinal cord compression causing myelopathy and leg pain.? The patient states that he was having difficulty lifting up his left leg.? The patient underwent a T10-L2 laminectomy with left L5-S1 diskectomy.? On 11/08/[address] Antonio.? Please see operative note.? The patient had a venous Doppler performed which shows no DVT to the right leg.? The patient is complaining of numbness and tingling to his right lower extremity.? The patient stated it feels as if he has pins and needles going into his leg.? The patient was started on dexamethasone and? his hydrocodone? was? replaced with oxycodone.? Patient has been having ? limited PT and OT due to the discomfort.? Patient was admitted to neuro surgery observation and the hospitalist group was asked to consult on 11/10/2022. Review of Systems Review of Systems: All systems reviewed & are unremarkable except as noted in HPI and below Exam Narrative: General: well-nourished, well-appearing 31-year-old male, sitting up in bed, comfortable, NARD Neuro: awake, alert and oriented x4, speech clear, no focal neuro deficits noted HEENMT: normocephalic, atraumatic, EOMI, sclerae anicteric, moist oral mucosa Respiratory: Clear to auscultation bilaterally without crackles, rhonchi or wheezes, nonlabored breathing Cardio: regular rate, regular rhythm with S1-S2 Abdomen: nondistended, normoactive bowel sounds, soft, nontender to palpation Extremities: no edema, erythema, or tenderness to palpation, DP pulses 2+ bilaterally Skin: no rashes or lesions, warm and dry Psych: appropriate mood and affect, judgment and insight intact Objective Data Vital Signs Vital Signs: Vital Signs - 24 hr 11/10/22 10:00 11/10/22 14:00 11/10/22 18:00 Temperature 98.0 F 97.8 F 97.6 F Pulse Rate 84 92 93 Respiratory Rate 18 14 16 Blood Pressure 147/58 H 147/64 H 123/59 L Pulse Oximetry 97 97 97 Oxygen Delivery 11/10/22 20:15 11/10/22 22:16 11/11/22 06:00 Temperature 97.2 F L 97.1 F L Pulse Rate 99 68 Respiratory Rate 18 18 Blood Pressure 111/54 L 106/67 Pulse Oximetry 96 96 Oxygen Delivery Room Air Intake/Output Intake/Output: Intake & Output 11/08/22 11/09/22 11/10/22 11/11/22 23:59 23:59 23:59 23:59 Intake Total 1400 3190 1680 Output Total 7941 2209 1325 Balance 1400 597 -639 -1055 Meds/Result
[2022-11-11 15:12] VITALS: BP 136/61; PULSE 93; RESP 18; TEMP 36.3; O2SAT 97
--- NOTE | 2022-11-11 19:07 | W.PM.PROC2 ---
Procedure Note - Detailed Date of Procedure 11/20/22 Pre-op Diagnosis T10-L2 stenosis, Right L5-S1 herniated nucleus pul Post-op Diagnosis Same Procedure Performed T10 and L2 laminectomy was he was we will see Surgeon Naren Antonio MD Wooden Frame Builder Erica Topete General Indications Omi is a 31-year-old gentleman with this myelopathy related to calcified disc herniations at T10 and L2 present were in compression posterior approach. Description of Procedure The patient was brought to the operative room supine position, was sedated, intubated and placed under general anesthesia and fashioned these into prone position on Ayaz frame. The area of operation on his back was examined, marked our incision, prepped and draped in routine sterile fashion incision was marked over the T10-L2 spinous processes midline. This area was injected with 0.5% lidocaine with 200,000 epinephrine. Intravenous antibiotics given prior to incision. Incision was made with a 10 blade scalpel down to the lumbodorsal fascia. A subperiosteal dissection of the muscle and soft tissue away from the spinous process and lamina at T10 and L2 was performed with a subperioteal elevator and bovie cautery bilaterally. A verifying x-rays obtained to verify the level of operation. Self retaining retractors were placed. The spinous processes were removed with a Arlyn rongeur. a Midas Jose drill with an acorn bit was used to remove lamina in the midline and to the soft contents of the canal were encountered. In the midline Kerrison punches and curved curettes were used to define plane the dura and remove bone and ligament until the dura was exposed. Midas Jose drill with a match stick bit was used to thin the facet and performing medial facetectomy bilaterally to each level. Careful dissection was carried out between the bone and ligament and the dura. 2-0 and 3-0 Kerrison punches were used to remove bone and ligament in the lateral recess bilaterally. This was a tedious and difficult process and had to be done very carefully given the severity of the stenosis especially on the right side. On the right side at every level additional medial facetectomy was performed using a Midas Jose drill, Kerrison punches and curved curette to try to find a channel down to the ventral epidural space. This was accomplished. Calcified disc herniations were known to be present at each of these levels. However, these were found to be too calcified and hard to allow removal safely. Therefore, it was not performed. Additionally, it was felt unnecessary to decompress the L5-S1 level as a similarly calcified disc herniation was apparent on CT scan. The wound was then copiously irrigated with bacitracin irrigation and all bleeding stopped with bipolar and Bovie cautery and Gelfoam thrombin powder. A medium Hemovac drain was left in the subfascial position and about the inferior and right of the incision. The wound was then closed in layered fashion with 2-0 Vicryl interrupted sutures in the lumbodorsal fascia and Omer's layer. 3-0 Vicryl buried interrupted sutures were placed in the dermis and the skin was closed with mer. It was dressed with a Telfa and Tegaderm dressing. The patient was then allowed to wake up in the operating room and was taken to the recovery room in stable condition. There were no immediate complications of this operation. All counts reported correct at the end case. Blood loss was 350 cc. The patient was neurologically at his baseline postoperatively. CPT Codes: 58891, 17342, 55775 X3 Estimated Blood Loss 350 IV Fluids 2,500 Urine Output 550 Complications None Condition Stable Disposition PACU [facility] Billing Surgery - Charge Forward: Surgery Billing
[2022-11-11 19:17] VITALS: BP 145/70; PULSE 68; RESP 16; TEMP 36.6; O2SAT 98
[2022-11-11] MEDS: MORPHINE SULFATE (*CRX) 2 MG/ML INJ IV PUSH (21:20)
[2022-11-11] MEDS: SENNA/DOCUSATE SODIUM TABLET 1 TAB PO (21:21)
[2022-11-11 22:25] VITALS: BP 133/73; PULSE 81; RESP 14; TEMP 36.4; O2SAT 98
[2022-11-12] VITALS (7 sets, daily range): BP systolic 121–144; BP diastolic 72–83; PULSE 74–83; RESP 16; TEMP 36.4–37.2; O2SAT 94–99
[2022-11-12] MEDS: DEXAMETHASONE 4 MG TABLET PO ×4 (00:23→17:40)
[2022-11-12 05:15] LABS: Basophils Percent Auto 0.1 % (0.2-1.2); Hematocrit 39.2 % (42.0-52.0); Hemoglobin 12.5 g/dL (14.0-18.0); Immature Granulocyte Percent A 0.8 % (0-0.5); Lymphocytes Absolute Auto 1.26 K/mm3 (0.9-3.2); Lymphocytes Percent Auto 10.2 % (18.3-44.2); Mean Corpuscular HGB Conc 31.9 g/dl (32-36); Mean Corpuscular Hemoglobin 28.7 pg (26-34); Mean Corpuscular Volume 90.1 fl (80-100); Mean Platelet Volume 12.1 fl (7.4-10.4); Monocytes Absolute Auto 0.6 K/mm3 (0.1-0.6); Monocytes Percent Auto 4.6 % (2.6-8.5); Neutrophils Absolute Auto 10.4 K/mm3 (1.3-6.7); Neutrophils Percent Auto 84.3 % (45.5-73.1); Platelet Count Result 216 k/mm3 (150-375); Red Blood Count 4.35 M/mm3 (4.6-6.20); White Blood Count 12.3 K/mm3 (4.5-10.0)
[2022-11-12 05:25] LABS: Alanine Aminotransferase 30 U/L (6-50); Albumin Level 3.8 g/dL (3.5-5.1); Alkaline Phosphatase 64 U/L (38-126); Anion Gap 4 mmol/L (8-16); Aspartate Amino Transferase 16 U/L (17-59); Bilirubin,Total 0.2 mg/dL (0.2-1.3); Blood Urea Nitrogen 17 mg/dL (9-20); Calcium 8.3 mg/dL (8.4-10.2); Carbon Dioxide 29 mmol/L (22-30); Chloride 99 mmol/L (98-107); Estimated CRCL calculation 271 ml/min; Estimated Glomerular Filt Rate > 60; Glucose 280 mg/dL (65-110); Magnesium 2.3 mg/dL (1.6-2.3); Potassium 4.1 mmol/L (3.4-5.0); Sodium 132 mmol/L (137-145)
[2022-11-12] MEDS: buPROPion HCL XL (24 HR) 150 MG TABCR 300 MG PO (08:24)
[2022-11-12] MEDS: DOCUSATE SODIUM 100 MG CAPSULE PO ×2 (08:24→21:31)
[2022-11-12] MEDS: oxyCODONE/ACETAMINOPHEN (*CRX) 5-325 MG TABLET 1 TABLET PO ×4 (08:25→21:30)
[2022-11-12] MEDS: oxyCODONE HCL (*CRX) 5 MG TAB IR PO ×4 (08:31→21:30)
[2022-11-12] MEDS: CYCLOBENZAPRINE HCL 10 MG TABLET PO ×2 (08:32→14:40)
--- NOTE | 2022-11-12 10:15 | PM.IMPN ---
Progress Note: A&P Assessment and Plan (1) Thoracic disc herniation: Code(s): M51.24 - Other intervertebral disc displacement, thoracic region Status: Acute Assessment and Plan: POD 4 Post op care per neurosurgery Pain medications per neurosurgery PT/OT consulted Activity limited due to pain in the right leg Consider adding gabapentin Consider MRI if pain continues or worsens DVT per neurosurgery (2) Depression: Code(s): F32.A - Depression, unspecified Status: Acute Assessment and Plan: Mood seems to be stable Continue with Wellbutrin for now (3) Elevated blood pressure reading: Code(s): R03.0 - Elevated blood-pressure reading, without diagnosis of hypertension Status: Acute Assessment and Plan: BP has been elevated 111-147/52-69 Not on any home medications Probably related to pain Continue to trend Add therapy as indicated Time Spent With Patient Time with patient: Greater than 35 minutes Subjective Date/time seen: 11/12/22 1015 Interval history: 11/12/22 1015 Patient is sitting in the chair. He is still having some pain, which he rates a 4/10. He denies any chest pain, shortness of breath, diarrhea, and constipation. He does report having a BM that he stated was large in nature. He was able to walk to the bathroom and go up and down stairs. Patient is doing well. hospitalist service will sign off for now please call with any concerns or any further needs. 11/11/22 1045 Patient is sitting in the chair. He stated that he was feeling better. He stated that the pain is better than it has been over the last few day. I bet it has something to do with weight shifting. Otherwise still no BM. He is doing well getting around. He denies any chest pain, shortness of breath, nausea, vomiting, diarrhea, constipation, weakness, or fatigue. 11/10/22 1616 Omi Sandoval II is a 31 year old male ? Who has had an injury to his back in the past.? The patient was found have spinal cord compression causing myelopathy and leg pain.? The patient states that he was having difficulty lifting up his left leg.? The patient underwent a T10-L2 laminectomy with left L5-S1 diskectomy.? On 11/08/[address] Antonio.? Please see operative note.? The patient had a venous Doppler performed which shows no DVT to the right leg.? The patient is complaining of numbness and tingling to his right lower extremity.? The patient stated it feels as if he has pins and needles going into his leg.? The patient was started on dexamethasone and? his hydrocodone? was? replaced with oxycodone.? Patient has been having ? limited PT and OT due to the discomfort.? Patient was admitted to neuro surgery observation and the hospitalist group was asked to consult on 11/10/2022. Review of Systems Review of Systems: All systems reviewed & are unremarkable except as noted in HPI and below Exam Narrative: General: well-nourished, well-appearing 31-year-old male, sitting up in bed, comfortable, NARD Neuro: awake, alert and oriented x4, speech clear, no focal neuro deficits noted HEENMT: normocephalic, atraumatic, EOMI, sclerae anicteric, moist oral mucosa Respiratory: Clear to auscultation bilaterally without crackles, rhonchi or wheezes, nonlabored breathing Cardio: regular rate, regular rhythm with S1-S2 Abdomen: nondistended, normoactive bowel sounds, soft, nontender to palpation Extremities: no edema, erythema, or tenderness to palpation, DP pulses 2+ bilaterally Skin: no rashes or lesions, warm and dry Psych: appropriate mood and affect, judgment and insight intact Objective Data Vital Signs Vital Signs: Vital Signs - 24 hr 11/11/22 10:10 11/11/22 15:12 11/11/22 19:17 Temperature 96.7 F L 97.4 F L 97.8 F Pulse Rate 97 93 68 Respiratory Rate 16 18 16 Blood Pressure 140/67 136/61 145/70 H Pulse Oximetry 99 97 98 Oxygen Delivery
--- NOTE | 2022-11-12 10:39 | PCOTNOTE ---
Per PROGRESSIVE CARE MANAGER, pt is declining the need for Occupational Therapy treatment today. Per PROGRESSIVE CARE MANAGER, pt and spouse feel like he is equipped and comfortable with managing his self care tasks using appropriate adaptive equipment and maintaining spinal precautions.
--- NOTE | 2022-11-12 14:38 | PCPTNOTE ---
Attempted to see patient for 2nd PT treatment, however patient declined. Patient reported he wanted to rest at this time and that he will walk later with nursing.
--- NOTE | 2022-11-12 17:35 | PC.NURSE ---
Paged Dr Antonio through exchange regarding discharge order. Waiting for return call.
[2022-11-13] MEDS: DEXAMETHASONE 4 MG TABLET PO ×2 (00:10→05:45)
[2022-11-13 01:52] VITALS: BP 120/82; PULSE 70; RESP 16; TEMP 36.6; O2SAT 96
[2022-11-13 05:39] LABS: Basophils Percent Auto 0.2 % (0.2-1.2); Eosinophils Percent Auto 0.1 % (0-4.4); Hematocrit 41.4 % (42.0-52.0); Immature Granulocyte Absolute 0.15 K/mm3 (0.00-0.031); Immature Granulocyte Percent A 1.1 % (0-0.5); Lymphocytes Absolute Auto 1.36 K/mm3 (0.9-3.2); Lymphocytes Percent Auto 10.4 % (18.3-44.2); Mean Corpuscular HGB Conc 31.4 g/dl (32-36); Mean Corpuscular Hemoglobin 29.1 pg (26-34); Mean Corpuscular Volume 92.8 fl (80-100); Mean Platelet Volume 11.9 fl (7.4-10.4); Monocytes Absolute Auto 0.6 K/mm3 (0.1-0.6); Monocytes Percent Auto 4.6 % (2.6-8.5); Neutrophils Absolute Auto 10.9 K/mm3 (1.3-6.7); Neutrophils Percent Auto 83.6 % (45.5-73.1); Platelet Count Result 231 k/mm3 (150-375); Red Blood Count 4.46 M/mm3 (4.6-6.20); Red Cell Distribution Width 12.9 % (11.5-14.5); White Blood Count 13.1 K/mm3 (4.5-10.0)
[2022-11-13] MEDS: HYDROcodone/acetaminophen (*CRX) 10-325 MG TABLET 1 TAB PO (05:48)
[2022-11-13 05:56] LABS: Alanine Aminotransferase 30 U/L (6-50); Albumin Level 3.6 g/dL (3.5-5.1); Alkaline Phosphatase 61 U/L (38-126); Anion Gap 6 mmol/L (8-16); Aspartate Amino Transferase 16 U/L (17-59); Bilirubin,Total 0.2 mg/dL (0.2-1.3); Blood Urea Nitrogen 20 mg/dL (9-20); Calcium 8.2 mg/dL (8.4-10.2); Carbon Dioxide 25 mmol/L (22-30); Chloride 102 mmol/L (98-107); Estimated CRCL calculation 269 ml/min; Estimated Glomerular Filt Rate > 60; Glucose 270 mg/dL (65-110); Magnesium 2.4 mg/dL (1.6-2.3); Potassium 4.3 mmol/L (3.4-5.0); Sodium 133 mmol/L (137-145)
[2022-11-13 06:06] VITALS: BP 145/86; PULSE 75; RESP 16; TEMP 36.6; O2SAT 98
[2022-11-13 08:00] VITALS: BP 116/96; PULSE 90; RESP 18; TEMP 36.6; O2SAT 99
[2022-11-13] MEDS: buPROPion HCL XL (24 HR) 150 MG TABCR 300 MG PO (08:02)
[2022-11-13] MEDS: DOCUSATE SODIUM 100 MG CAPSULE PO (08:02)
[2022-11-13] MEDS: CYCLOBENZAPRINE HCL 10 MG TABLET PO (08:04)
--- NOTE | 2022-11-13 09:45 | PM.DS ---
DS: Admitting Diagnosis Discharge Date 11/13/2022 0945 Admitting Diagnosis elective laminectory DS: Discharge Diagnosis Discharge Diagnosis (1) Thoracic disc herniation: Code(s): M51.24 - Other intervertebral disc displacement, thoracic region Status: Acute Assessment and Plan: POD 4 Post op care per neurosurgery Pain medications per neurosurgery PT/OT consulted Activity limited due to pain in the right leg Consider adding gabapentin Consider MRI if pain continues or worsens DVT per neurosurgery (2) Depression: Code(s): F32.A - Depression, unspecified Status: Acute Assessment and Plan: Mood seems to be stable Continue with Wellbutrin for now (3) Elevated blood pressure reading: Code(s): R03.0 - Elevated blood-pressure reading, without diagnosis of hypertension Status: Acute Assessment and Plan: BP has been elevated 111-147/52-69 Not on any home medications Probably related to pain Continue to trend Add therapy as indicated DS: Summary Hospital Course Hospital Course: Mr. Sandoval is a 31-year-old gentleman with spinal cord compression causing myelopathy and back and leg pain presents for T10-L2 laminectomy and microdiskectomy and left-sided L5-S1 microdiskectomy to remove calcified disc herniations and decompress the spinal canal and nerve roots.? He has not changed appreciably since we saw him last.? He is not having any new bowel or bladder issues.? He does have weakness and difficulty walking. patient was taken to surgery on 11/08/2022 for laminectomy of T10-L2. Patient was doing well postop and pain was subsiding in the left leg however the right leg was starting to have significant pain. Patient was also noted to have possibly have decreased pulses. Hospitalist was consulted for further management possible DVT. Venous Dopplers were performed showed DVTs. Pain has resided and patient is still currently experiencing a 3/10 pain however states that is doing a lot better. Patient was also started on steroids per Neurosurgery. Patient has been working with PT and OT and has been able to walk stairs and up and down the hallway. Currently patient is doing well and is wanting discharge. Patient did have a significantly large bowel movement on 11/11/22. Patient states that he is able to eaten able to taken p.o. quite well. Patient is also able to get up and down and get around by himself. Patient is stable per labs and vital signs per Neurosurgery and hospitalist. Patient is being discharged home and specific discharge instructions have been included in the discharge plan. Patient denies any chest pain, shortness a breath, nausea, vomiting, diarrhea or constipation. Status at Discharge Functional status at discharge: uses cane/walker Overall status at discharge: patient is progressing back to baseline Time Spent with Patient Time attestation: Total time spent providing and/or coordinating discharge services: 42 minutes Time spent: Greater than 30 minutes Specific discharge activities: Diagnostic testing, chart review, developing a treatment plan, education, care coordination documentation, physical exam, result review Exam Narrative: General:? well-nourished, well-appearing 32-year-old male,? sitting up in bed, comfortable, NARD Neuro: awake, alert and oriented x4, speech clear, no focal neuro deficits noted HEENMT:? normocephalic, atraumatic, EOMI, sclerae anicteric, moist oral mucosa Respiratory:? Clear to auscultation bilaterally without crackles, rhonchi or wheezes, nonlabored breathing Cardio: regular rate, regular rhythm with S1-S2 Abdomen:? nondistended, normoactive bowel sounds, soft, nontender to palpation Extremities: no edema, erythema, or tenderness to palpation, DP pulses 2+ bilaterally Skin: no rashes or lesions, warm and dry Psych: appropriate mood and affect, judgment and insight intact DS: Data Data Comp
== END 2022-11-13 11:15 | disposition home or self-care (01) | DRG 310 ==
LOC: ANHSURGERY 15:11 → ANHSUROVER 15:11 → ANH2MED 15:57
PROVIDERS: Nurse Practitioner; Admitting Provider Neurological Surgery; Visit Provider Neurological Surgery
PROC: 00NX0ZZ Release Thoracic Spinal Cord, Open Approach (ICD-10-PCS; CPT 63005; principal; 2022-11-08 11:30)
DX: M51.24 Other intervertebral disc displacement, thoracic region (principal); G99.2 Myelopathy in diseases classified elsewhere; E66.01 Morbid (severe) obesity due to excess calories; M48.05 Spinal stenosis, thoracolumbar region; Z68.43 Body mass index [BMI] 50.0-59.9, adult; M51.26 Other intervertebral disc displacement, lumbar region; R03.0 Elevated blood-pressure reading, without diagnosis of hypertension; F32.A Depression, unspecified; F41.9 Anxiety disorder, unspecified
CPT/HCPCS: 36415; 80053; 82607; 82746; 83735; 84439; 84443; 84480; 85025; 85610; 85730; 86850; 86900; 86901; 93970; 96365; 96375; 97110; 97162; 97166; 97530; 97535; 99199; A9270; G0378; G0379; J0330; J0690; J1100; J1170; J2250; J2270; J2405; J2704; J3010; J7120; J8540

== ENCOUNTER 2023-08-24 02:04 | Observation (INO) | payer OTHER, SELFPAY ==
[2023-08-24] VITALS (8 sets, daily range): BP systolic 137–146; BP diastolic 61–80; PULSE 78–107; RESP 18–20; TEMP 36–36.7; O2SAT 92–99; BMI 54.3
--- NOTE | ~2023-08-24 | CT_ITS ---
EXAMINATION: CT thoracic spine wo con DATE: 08/24/2023 12:33 INDICATION: FALL, BACK PAIN, UNABLE TO WALK . TECHNIQUE: Computed tomography (CT) of the thoracic spine was performed without intravenous contrast. Automated exposure control and iterative reconstruction technique were employed. The dose-length pro duct was 1621.48 mGy-cm. COMPARISON: None FINDINGS: Normal vertebral body alignment. Mild anterior wedge deformity at T11-L1. Vertebral body he ights otherwise maintained. No fracture or dislocation. Multilevel facet arthropathy. Multilevel mild degenerative disc disease. Congenitally narrow canal. Extensive posterior decompression extending fr om T10 to at least L2. Multilevel central canal narrowing, severe at T9-10. Multilevel moderate-sever e neural foraminal narrowing. IMPRESSION: No acute fracture or traumatic malalignment detected in the thoracic spine. Mild anterior wedge deformities at T11-L1, likely physiologic unless accompanied by acute pain/tender ness. Comparison to outside studies would be helpful if available. Congenitally narrow spinal canal with multilevel mild degenerative disc disease and facet arthropathy . Multilevel central canal narrowing, severe at T9-T10. Multilevel moderate and severe degrees of bethany ral foraminal narrowing. Reviewed, dictated and finalized at location K. IMPRESSION: No acute fracture or traumatic malalignment detected in the thoracic spine. Mild anterior wedge deformities at T11-L1, likely physiologic unless accompanie d by acute pain/tenderness. Comparison to outside studies would be helpful if a vailable. Congenitally narrow spinal canal with multilevel mild degenerative disc disease and facet arthropathy. Multilevel central canal narrowing, severe at T9-T10. M ultilevel moderate and severe degrees of neural foraminal narrowing.
--- NOTE | 2023-08-24 00:04 | ADMGEN ---
This patient, Omi Sandoval II, was admitted to 2 Medical Room 258-01. Patient/family oriented to hospital policies and general routines including ID bracelet, bed and alarms, visiting hours, pain management, procedures, bathroom and other care routines, personal items, smoking policy, room service/diet, and visiting hours. Information on how to activate the Rapid Response Team has been discussed. Patient/Family are encouraged to report perceived risks to care and to ask questions if they do not understand what they are told or what they should do.
[2023-08-24] MEDS: ACETAMINOPHEN 325 MG TABLET 650 MG PO (04:57)
[2023-08-24 06:10] LABS: Basophils Absolute Auto 0.1 K/mm3 (0.0-0.1); Basophils Percent Auto 0.8 % (0.2-1.2); Eosinophils Absolute Auto 0.3 K/mm3 (0-0.3); Eosinophils Percent Auto 4.5 % (0-4.4); Hematocrit 41.5 % (42.0-52.0); Hemoglobin 12.9 g/dL (14.0-18.0); Immature Granulocyte Absolute 0.02 K/mm3 (0.00-0.031); Immature Granulocyte Percent A 0.3 % (0-0.5); Lymphocytes Absolute Auto 1.58 K/mm3 (0.9-3.2); Lymphocytes Percent Auto 22.2 % (18.3-44.2); Mean Corpuscular HGB Conc 31.1 g/dl (32-36); Mean Corpuscular Hemoglobin 27.5 pg (26-34); Mean Corpuscular Volume 88.5 fl (80-100); Mean Platelet Volume 11.6 fl (7.4-10.4); Monocytes Absolute Auto 0.6 K/mm3 (0.1-0.6); Monocytes Percent Auto 8.7 % (2.6-8.5); Neutrophils Absolute Auto 4.5 K/mm3 (1.3-6.7); Neutrophils Percent Auto 63.5 % (45.5-73.1); Platelet Count Result 223 k/mm3 (150-375); Red Blood Count 4.69 M/mm3 (4.6-6.20); Red Cell Distribution Width 15.1 % (11.5-14.5); White Blood Count 7.1 K/mm3 (4.5-10.0)
[2023-08-24 06:11] LABS: Anion Gap 5 mmol/L (8-16); Blood Urea Nitrogen 21 mg/dL (9-20); Calcium 8.7 mg/dL (8.4-10.2); Carbon Dioxide 32 mmol/L (22-30); Chloride 102 mmol/L (98-107); Estimated CRCL calculation 232 ml/min; Estimated Glomerular Filt Rate > 60; Glucose 131 mg/dL (65-110); Sodium 139 mmol/L (137-145)
[2023-08-24] MEDS: buPROPion HCL XL (24 HR) 150 MG TABCR 300 MG PO (09:06)
[2023-08-24] MEDS: HYDROcodone/acetaminophen (*CRX) 5-325 MG TABLET 1 TAB PO (09:17)
--- NOTE | 2023-08-24 11:51 | PM.IMHP ---
H&P: HPI History of Present Illness Date/Time: 08/24/23 11:51 Chief Complaint: lower extremity weakness Narrative: This is a 32-year-old male with a past medical history of anxiety depression and recent laminectomy in October of [address] Antonio. patient stated he had a fall in July of 2022 that caused a significant back injury that he had surgery on in October of 2022. He stated that he felt amazing after the surgery for approximately 3 months. After 3 months he started to gradually get lower extremity numbness starting in the right leg. By April patient's right leg went completely numb and he ceased to have feeling. Approximately 1 week ago his left leg also went completely numb. He did attempt contacting the surgeon's office and did not receive any further workup. He denies bowel and bladder incontinence. He had a fall a couple days ago that resulted in him having numbness and lack of movement in his extremities. The lack of movement is new to him. He has difficulty moving his toes bilaterally. He also has increased sensitivity on the bottoms of his feet and decreased sensitivity everywhere else from the waist down. He had presented to [facility] after his fall and he was transferred here due to having laminectomy done at [facility]. Neurosurgery was consulted and imaging was ordered. [facility] Past Medical History Medical History Anxiety Back pain Morbid obesity Surgical History Surgical History (Updated 08/24/23 @ 12:06 by Karrie Garcia PA-C) History of excision of pilonidal cyst History of lumbar discectomy Oct 2022 Hx of laminectomy Oct 2022 Family History Family History (Updated 08/24/23 @ 12:08 by Karrie Garcia PA-C) Sibling Heart disease Other Diabetes mellitus Hypertension Social History Social History (Updated 08/24/23 @ 12:08 by Karrie Garcia PA-C) Social History: The patient lives with his . The patient has 3 children with a fourth on the way. 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 the patient smoked in high school but has not smoked since. Code status full code. Smoking status: Never smoker Alcohol intake: never Drinks per week: 1 Alcohol use details: 1-2/YEAR Substance use: never Substance use type: does not use Lack of Transportation: No Lack of Food: Never True Current Housing: I Have Housing Concerned About Future Housing: No Difficulty Paying Gas/Electric Bills: No Difficulty Paying for Meds: No Currently Unemployed: No Education: High School Diploma/GED Difficulty w/ Childcare or Family Care: No Living arrangements: with family Spiritual care concerns: No Meds Home Medications and Allergies Home Medications Medication Instructions Recorded Confirmed Type bupropion HCl 300 mg 24 hr tablet, 300 mg PO DAILY 10/26/22 08/23/23 History extended release hydroxyzine HCl 25 mg tablet 25 mg PO Q12H PRN ANXIETY 08/23/23 08/24/23 History Allergies Allergy/AdvReac Type Severity Reaction Status Date / Time No Known Allergies Allergy Verified 12/24/22 16:43 Vital Signs Vital Signs - 24 hr 08/24/23 00:03 08/24/23 01:00 08/24/23 01:03 Temperature 98.0 F Pulse Rate 94 97 Respiratory Rate 20 Blood Pressure 137/80 Pulse Oximetry 93 Oxygen Delivery Room Air 08/24/23 04:00 08/24/23 04:43 Temperature 98.1 F Pulse Rate 106 H 107 H Respiratory Rate 20 Blood Pressure 138/76 Pulse Oximetry 92 Oxygen Delivery Exam Narrative: GENERAL: Comfortable, no acute distress HENMT: moist mucous membranes EYES: EOM intact b/l NECK: no lymphadenopathy RESPIRATORY: clear to auscultation CARDIO: RRR GI: soft, nontender, bowel sounds present SKIN: no rashes EXTREMITIES: no edema, redness or tenderness NEURO: Strength 1/5 in the bilateral lower extremities, significant decreased movement in bi
[2023-08-24] MEDS: LORazepam INJ (*CRX) 2 MG/ML VIAL 0.5 MG IM (12:07)
[2023-08-24] MEDS: CYCLOBENZAPRINE HCL 5 MG TABLET PO (14:14)
--- NOTE | 2023-08-24 14:21 | WPDNEUROSGCN ---
Assessment and Plan Assessment and plan (1) Spinal cord injury: Status: Acute (2) Thoracic spinal stenosis: Code(s): M48.04 - Spinal stenosis, thoracic region Status: Acute Plan Mr. Sandoval is a 32-year-old male with history of T12-L2 laminectomies in October with Dr. Antonio for lower-extremity weakness and numbness who presents with several months of similar and progressive symptoms culminating in a fall yesterday that led to worsened symptoms. On physical exam, he has generally 2-3/5 strength of his muscle groups with patchy areas of sensation and a T10 sensory level. He has been voiding without difficulty. He had a CT thoracic spine that shows severe spinal stenosis at T10 from calcified ligamentum flavum. He had a CT lumbar spine performed at an outside hospital which has not been uploaded into the system, but based on his physical exam, my suspicion is that he is symptomatic from the spinal cord compression at T10. We attempted to get an MRI today, but due to his size, he is unable to fit in the MRI. I have therefore recommended urgent transfer to [facility] so that he can get an MRI completed tonight in anticipation of needing surgery for decompression of his spinal cord. He has been accepted for transfer and is awaiting a bed. In the event that these steps can be completed quickly today, I have asked him to hold off from eating or drinking in anticipation of surgery. Plan: -Recommend urgent transfer to [facility] for urgent MRI thoracic/lumbar spine and surgical intervention Consult date: 08/24/23 HPI: Omi Sandoval II is a 32 year old male with history of morbid obesity, anxiety, depression, and thoracolumbar laminectomies performed earlier this year who was transferred overnight for progressive lower-extremity weakness after a fall yesterday. In October, he had T12-L2 laminectomies performed by Dr. Antonio for lower extremity numbness and weakness in the setting of multiple calcified thoracic disc herniations with severe stenosis. He did well initially after surgery but was never able to ambulate independently. He was walking with a cane post-operatively and returned to work in January. He developed numbness throughout the right leg over the summer. In April, he started needing a walker to ambulate, and in June, he was requiring significant support of his upper extremities on the walker to pull his legs forward. He had a sensation that he was dragging his legs. Within the last week, he started developing numbness in the left leg as well. Yesterday, when attempting to stand up from the toilet, he fell and was unable to get up. He went to an outside ER and was transferred here. Since his fall, he has had increased difficulty moving both legs, particularly the right. Both legs feel numb. He has been able to urinate without difficulty. He denies any upper-extremity pain, paresthesias, or weakness. Review of Systems Review of Systems: All systems reviewed & are unremarkable except as noted in HPI and below PMFSH Past Medical History Medical History (Updated 08/24/23 @ 14:51 by Lorenza Coronel MD) Anxiety Back pain Morbid obesity Surgical History Surgical History (Updated 08/24/23 @ 12:06 by Karrie Garcia PA-C) History of excision of pilonidal cyst History of lumbar discectomy Oct 2022 Hx of laminectomy Oct 2022 Family History Family History (Updated 08/24/23 @ 12:08 by Karrie Garcia PA-C) Sibling Heart disease Other Diabetes mellitus Hypertension Social History Social History (Updated 08/24/23 @ 12:08 by Karrie Garcia PA-C) Social History: The patient lives with his . The patient has 3 children with a fourth on the way. 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 the patient smoked in high school but has not smoked since. Code status full code. Smoking status: Never smoker Alcohol intake: never Drinks per week: 1 Alcohol use details:
[2023-08-24] MEDS: SODIUM CHLORIDE 0.9% IV 1,000 ML 100 ML IV CONT (15:09)
[2023-08-24] MEDS: KETOROLAC 15 MG/ML VIAL (*BKC) IV PUSH (15:16)
--- NOTE | 2023-08-24 19:38 | PC.NURSE ---
Pt leaving via EMS to [facility]. Report given to EMS, all questioned answered, IV access continued. Belongings sent with pt.
--- NOTE | 2023-08-25 06:55 | PM.TDS ---
Transfer Discharge Sum: Prov Provider Date of admission: 08/24/23 02:04 Primary care physician: PHYSICIAN NOT ON STAFF Admitting clinician: Mariah Taylor DO Consults: 08/24/23 Consult to Physician Routine Comment: Consulting Provider: Lorenza Coronel bilingual call center representative/MD group to consult: Neurosurgery Dr. Coronel notified by outside facility Reason for consultation: L5-S1 deficits Has provider been notified: Yes DS: Admitting Diagnosis Discharge Date 08/24/23 Admitting Diagnosis B/l lower extremity numbness, tingling, and weakness DS: Discharge Diagnosis Discharge Diagnosis (1) Lower extremity weakness: Code(s): R29.898 - Other symptoms and signs involving the musculoskeletal system Status: Acute (2) Thoracic disc herniation: Code(s): M51.24 - Other intervertebral disc displacement, thoracic region Status: Acute (3) Lumbar disc herniation: Code(s): M51.26 - Other intervertebral disc displacement, lumbar region Status: Acute (4) Anxiety: Code(s): F41.9 - Anxiety disorder, unspecified Status: Acute Transfer Discharge Sum: Med Medications Active and Home Medications: Home Medications bupropion HCl 300 mg 24 hr tablet, extended release 300 mg PO DAILY 10/26/22 [History Confirmed 08/23/23] hydroxyzine HCl 25 mg tablet 25 mg PO Q12H PRN ANXIETY 08/23/23 [History Confirmed 08/24/23] Transfer Discharge Sum: Hosp Hospital Course Hospital course: Omi Sandoval II is a 32 year old male with a past medical history of anxiety depression and recent laminectomy in October of [address] Antonio[address] patient stated he had a fall in July of 2022 that caused a significant back injury that he had surgery on in October of 2022.? He stated that he felt amazing after the surgery for approximately 3 months.? After 3 months he started to gradually get lower extremity numbness starting in the right leg.? By April patient's right leg went completely numb and he ceased to have feeling.? Approximately 1 week ago his left leg also went completely numb.? He did attempt contacting the surgeon's office and did not receive any further workup.? He denies bowel and bladder incontinence.? He had a fall a couple days ago that resulted in him having numbness and lack of movement in his extremities.? The lack of movement is new to him.? He has difficulty moving his toes bilaterally.? He also has increased sensitivity on the bottoms of his feet and decreased sensitivity everywhere else from the waist down.? He had presented to [facility] after his fall and he was transferred here due to having laminectomy and diskectomy done at [facility]. Neurosurgery was consulted and recommended CT and MRI w/wo contrast of thoracic and lumbar spine. Patient was unable to fit into the MRI machine due to body habitus. Discussed with neurosurgery and [facility] has open MRI machine that would be sufficient size for the patient. [facility] is also credential at [facility]. Patient was accepted into hospitalist service and was transferred on the date of 08/24/23. Time Spent with Patient Time attestation: Total time spent providing and/or coordinating transfer services: Exam Narrative: GENERAL: Comfortable, no acute distress HENMT: moist mucous membranes EYES: EOM intact b/l NECK: no lymphadenopathy RESPIRATORY: clear to auscultation CARDIO: RRR GI: soft, nontender, bowel sounds present SKIN: no rashes EXTREMITIES: no edema, redness or tenderness NEURO: Strength 1/5 in the bilateral lower extremities, significant decreased movement in bilateral lower extremities, increased sensation in bilateral lower feet radiating pain into the back, decreased sensation over the legs in the tops of the feet, bilateral dorsalis pedis pulse is present
== END 2023-08-24 19:38 | disposition short-term general hospital (02) ==
PROVIDERS: Admitting Provider Internal Medicine; Visit Provider Internal Medicine
DX: R20.0 Anesthesia of skin (principal); R29.898 Other symptoms and signs involving the musculoskeletal system; M48.04 Spinal stenosis, thoracic region; M51.24 Other intervertebral disc displacement, thoracic region; M51.26 Other intervertebral disc displacement, lumbar region; W19.XXXA Unspecified fall, initial encounter; Z99.89 Dependence on other enabling machines and devices; F41.9 Anxiety disorder, unspecified; F32.A Depression, unspecified; E66.01 Morbid (severe) obesity due to excess calories; Z68.43 Body mass index [BMI] 50.0-59.9, adult; Z98.890 Other specified postprocedural states; Z87.891 Personal history of nicotine dependence; Z79.899 Other long term (current) drug therapy
CPT/HCPCS: 36415; 72128; 80048; 85025; 96365; 96372; A9270; G0378; G0379; J1885; J2060; J7030